=== PATIENT | male | born 1950 | race Caucasian/White ===

== ENCOUNTER → 2016-08-02 | Outpatient (CLI) | payer OTHER ==
[~2016-08-02] MED LIST: ACET-1138 PO; ALBI1INJ2 SQ; ALL300 PO; ALLO100T PO; AMOX875T PO; ASPEC325 PO; ATOR-26 PO; ATV5 PO; GABA-112 PO; GLC/500 PO; GLIM4TAB2 PO; HYDR25TA4 PO; IBUP-1050 PO; INSDGIPEN SC; LISI-725 PO; LORA-741 PO; NVLGI/PEN SQ; NVLGIPEN SQ; NYST100010 TOP; NYST100098 TOP; TRIA0.1O12 TOP; TRMCR130WC TOP; ULT50X PO; [UNRECOGNIZED DRUG - CODE] PO
[2016-08-02 13:56] LABS: HEMATOCRIT 44.2 % (42-52); MEAN CORPUSCULAR HEMOGLOBIN 30.1 pg (25-34); MEAN CORPUSCULAR HGB CONC 34.2 g/dl (32-36); MEAN PLATELET VOLUME 11.8 fL (7.4-10.4); PLATELET COUNT 200 K/uL (130-400); RED BLOOD COUNT 5.02 M/uL (4.7-6.1); WHITE BLOOD COUNT 10.13 K/uL (4.8-10.8)
[2016-08-02 14:03] LABS: ALT/SGPT 53 U/L (12-78); BLOOD UREA NITROGEN 28 mg/dl (7-18); BUN/CREATININE RATIO 23.1 (10-20); CALCIUM 9.2 mg/dl (8.5-10.1); CARBON DIOXIDE 26 mmol/L (21-32); CHLORIDE 96 mmol/L (98-107); CHOLESTEROL 175 mg/dl (0-200); GLUCOSE 327 mg/dl (70-99); POTASSIUM 3.9 mmol/L (3.5-5.1); SODIUM 134 mmol/L (136-145)
[2016-08-02 14:09] LABS: ALB/GLOB RATIO 0.9 (0.9-2); ALKALINE PHOSPHATASE 92 U/L (45-117); AST/SGOT 45 U/L (15-37); CHOLESTEROL/HDL RATIO 4.1; HDL CHOLESTEROL 43 mg/dl; LDL CHOLESTEROL CALCULATED 97 mg/dl; TRIGLYCERIDES 176 mg/dl (0-150); VERY LOW DENSITY LIPOPROT CALC 35 mg/dl
[2016-08-02 14:16] LABS: BETA-HYDROXYBUTYRATE 2.05 mg/dL (0.2-2.81)
[2016-08-02 14:28] LABS: ESTIMATED AVERAGE GLUCOSE 258 mg/dl; HA1C FLAG Normal (Normal)
== END | disposition home or self-care (01) ==
LOC: C.LABBC 09:28
PROVIDERS: ATTEND Internal Medicine
DX: E11.65 Type 2 diabetes mellitus with hyperglycemia (principal); Z12.5 Encounter for screening for malignant neoplasm of prostate; Z11.59 Encounter for screening for other viral diseases

== ENCOUNTER → 2016-09-22 | Outpatient (CLI) | payer OTHER ==
[~2016-09-22] MED LIST changes: +PHEN1ELX5 PO; -[UNRECOGNIZED DRUG - CODE] PO
--- NOTE | 2016-09-22 11:16 | DIAGNOSTIC IMAGING REPORT ---
CHEST 2 VIEWS ROUTINE CLINICAL HISTORY: Cough. COMPARISON STUDY: Chest radiograph January 11, 2016. FINDINGS: Lumbar spine fusion hardware is partially imaged. Lung volumes are at the lower limits of normal. There is no consolidation to suggest pneumonia and there is no evidence of pulmonary edema. A linear radiodensity projecting over the right aspect of the mediastinum is of doubtful significance. Cardiomediastinal silhouette is stable. IMPRESSION: No acute cardiopulmonary findings. Electronically signed by: Trung Plunkett M.D. 09/22/2016 11:15 AM Dictated Date/Time: 09/22/2016 11:11 AM
== END | disposition home or self-care (01) ==
LOC: C.RAD1850 10:47
PROVIDERS: ATTEND Internal Medicine
DX: R05 Cough (principal)

== ENCOUNTER → 2016-12-06 | Outpatient (CLI) | payer OTHER ==
[~2016-12-06] MED LIST changes: -PHEN1ELX5 PO; +[UNRECOGNIZED DRUG - CODE] PO
[2016-12-06 13:19] LABS: BASO % 0.5 %; BASO ABS # 0.04 K/uL (0-0.2); COMPLETE YES; EOS % 2.5 %; HEMATOCRIT 44.8 % (42-52); IG% 0.3 %; LYMPH % 36.2 %; LYMPH ABS # 2.78 K/uL (1.2-3.4); MEAN CELL VOLUME 86.5 fL (80-100); MEAN CORPUSCULAR HEMOGLOBIN 29.9 pg (25-34); MEAN CORPUSCULAR HGB CONC 34.6 g/dl (32-36); MONO % 6.4 %; NEUT % 54.1 %; PLATELET COUNT 168 K/uL (130-400); RED BLOOD COUNT 5.18 M/uL (4.7-6.1); WHITE BLOOD COUNT 7.69 K/uL (4.8-10.8)
[2016-12-06 14:15] LABS: ALB/GLOB RATIO 0.9 (0.9-2); ALKALINE PHOSPHATASE 84 U/L (45-117); ALT/SGPT 64 U/L (12-78); AST/SGOT 40 U/L (15-37); BLOOD UREA NITROGEN 22 mg/dl (7-18); BUN/CREATININE RATIO 16.5 (10-20); CARBON DIOXIDE 24 mmol/L (21-32); CHLORIDE 98 mmol/L (98-107); CHOLESTEROL 165 mg/dl (0-200); CHOLESTEROL/HDL RATIO 3.8; GLUCOSE 358 mg/dl (70-99); HDL CHOLESTEROL 43 mg/dl; LDL CHOLESTEROL CALCULATED 89 mg/dl; POTASSIUM 3.9 mmol/L (3.5-5.1); SODIUM 132 mmol/L (136-145); THYROID STIMULATING HORMONE 0.811 uIu/ml (0.300-4.500); TRIGLYCERIDES 166 mg/dl (0-150); VERY LOW DENSITY LIPOPROT CALC 33 mg/dl
[2016-12-06 14:19] LABS: ESTIMATED AVERAGE GLUCOSE 346 mg/dl; HA1C FLAG Normal (Normal)
[2016-12-06 14:46] LABS: BETA-HYDROXYBUTYRATE 2.39 mg/dL (0.2-2.81)
== END | disposition home or self-care (01) ==
LOC: C.LABBC 10:59
PROVIDERS: ATTEND Internal Medicine
DX: E11.65 Type 2 diabetes mellitus with hyperglycemia (principal)

== ENCOUNTER 2016-12-29 21:27 | Emergency (ER) | payer OTHER ==
[~2016-12-29] VITALS: Ht 162.6 cm; Wt 128.4 kg
[~2016-12-29 21:27] MED LIST changes: -ALBI1INJ2 SQ; -ALLO100T PO; -AMOX875T PO; -ATOR-26 PO; -GABA-112 PO; -GLC/500 PO; -HYDR25TA4 PO; -IBUP-1050 PO; -INSDGIPEN SC; -LISI-725 PO; -LORA-741 PO; -NVLGI/PEN SQ; -NVLGIPEN SQ; -NYST100010 TOP; -TRMCR130WC TOP; -[UNRECOGNIZED DRUG - CODE] PO
[2016-12-29 21:35] VITALS: TEMP 36.4; Ht 162.6 cm; Wt 128.4 kg
[2016-12-29] MEDS ORDERED: RABIES IMMUNE GLOBULIN (HUMAN) 150 INTER.UNIT/ML 2 ML VIAL IM. ONE (22:15)
[2016-12-29] MEDS ORDERED: AMOXICIL/CLAVU 875MG HOME PACK PO ONE (22:15)
[2016-12-29] MEDS ORDERED: RABIES VACCINE (IMOVAX) HUMAN DIPL CELL 2.5 INTER.UNIT/ML SYR IM. ONE (22:15)
[2016-12-29 22:54] VITALS: BP 146/80; PULSE 81; O2SAT 96
[2016-12-29] MEDS ORDERED: AMOX875T PO (23:06)
--- NOTE | 2016-12-29 23:08 | EMERGENCY ROOM VISIT NOTE ---
History First contact with patient: 21:46 Chief Complaint: BITE Stated Complaint: CAT BITE History of Present Illness The patient is a 66 year old male who presents to the Emergency Room with complaints of cat bites to his right lower leg and right forearm. The patient states that he was bit by a barn cat which has lived at his arm for the past 7 years. He states that the cat is usually very friendly and has never been aggressive in the past. The cat has not received any vaccinations. He states that this morning, he tried to pet the cat and it attacked his right leg. He states that later in the day, the cat attacked his grandson and then again attacked the patient, biting his right forearm and right leg. While the patient was chasing after the cat, he feels that he pulled his left groin muscle. The patient states his tetanus status is up-to-date. He rates his overall discomfort a 7/10. He is concerned that the cat could have rabies, as the behavior today was very unusual for the cat. He states that 3-4 weeks ago, the cat suffered an injury to one of his legs and has been limping around since then. They did shoot a cat and have the body at home. Review of Systems A complete 10 point review of systems was reviewed with the patient with pertinent positives and negatives as per history of present illness. All else were negative. Past Medical/Surgical History Medical Problems: (1) Right Knee DJD Social History Smoking Status: Never Smoker Current/Historical Medications Scheduled Allopurinol (Zyloprim *), 300 MG PO QAM Amoxicillin & Pot Clavulanate (Augmentin 875-125 mg), 1 TAB PO BID Atorvastatin (Lipitor), 80 MG PO QPM Belladonna Alkaloids-Phenobarb (), 162 MG PO BID Gabapentin (Neurontin), 200 MG PO TID Hydrochlorothiazide (Hctz), 25 MG PO QAM Insulin Aspart (Novolog Flexpen), 5 UNITS SQ NOON Insulin Aspart (Novolog Flexpen), 12 UNITS SQ QPM Insulin Glargine (Lantus Solostar), 36 UNITS SC HS Lisinopril (Zestril), 20 MG PO QAM Lorazepam (Ativan *), 0.5 MG PO BID Metformin Hcl (Glucophage), 1,000 MG PO BID Nystatin (Mycostatin), 1 APPLN TOP PRN Triamcinolone Acet (Kenelog 0.1% ), 1 APPLN TOP PRN Scheduled PRN Ibuprofen (Advil), 600 MG PO TID PRN for Pain Physical Exam Vital Signs Date Time Temp Pulse Resp B/P (MAP) Pulse Ox O2 Delivery O2 Flow Rate FiO2 12/29/16 22:54 81 18 146/80 96 Room Air 12/29/16 21:35 36.4 86 18 143/70 95 Room Air Physical Exam VITALS: Vitals are noted on the nurse's note and reviewed by myself. Vital signs stable. GENERAL: This is a 66-year-old male, in no acute distress, nondiaphoretic, well- developed well-nourished. SKIN: There are multiple superficial puncture wounds to the right lower leg and one puncture wound to the right forearm. No active bleeding. HEART: Regular rate and rhythm without murmurs gallops or rubs. LUNGS: Clear to auscultation bilaterally without wheezes, rales or rhonchi. MUSCULOSKELETAL: Full range of motion throughout, strength 5/5 throughout. NEURO: Patient was alert and oriented to person place and time. Medical Decision & Procedures Medications Administered Medications (Trade) Dose Ordered Sig/Katina Route Start Time Stop Time Status Last Admin Dose Admin Rabies Vaccine Human Diploid Cell (Imovax Rabies) 2.5 interunit ONCE ONCE IM. 12/29/16 22:15 12/29/16 22:16 DC 12/29/16 22:45 2.5 INTERUNIT Rabies Immune Globulin (Imogam Rabies Inj) 2,560 interunit ONCE ONCE IM. 12/29/16 22:15 12/29/16 22:16 DC 12/29/16 22:45 2,560 INTERUNIT Amoxicillin/ Clavulanate Potassium (Augmentin 875MG Home Pack) 1 homepack UD ONCE PO 12/29/16 22:15 12/29/16 22:16 DC 12/29/16 22:45 1 HOMEPACK Medical Decision The patient was evaluated as above. His tetanus is up-to-date. He will be placed on Augmentin for 5 days to prevent infection. I had a lengthy discussion with the patient regarding the rabies vaccination series. I am concerned because the patient states that this kind of behavior was very unusual for the cat, and the cat has never bit him in the past 7 years. I am concerned that the cat could have been exposed to rabies and it did recommend that the patient received the vaccination series. He was agreeable to this and was given immunoglobulin 20 mg/kg and Imovax 2.5 units intramuscularly. He was instructed on which days to return for the remaining series. He verbalized understanding of my assessment and treatment plan and was discharged home in good condition. Medication Reconcilliation Current Medication List: was personally reviewed by me Blood Pressure Screening Patient's blood pressure: Elevated blood pressure Blood pressure disposition: Elevated BP felt to be situational Impression Primary Impression: Cat bite Departure Information Dispostion Home / Self-Care Condition GOOD Prescriptions Amoxicillin & Pot Clavulanate (Augmentin 875-125 mg) 1 Tab Tab 1 TAB PO BID for 4 Days, #8 TAB Prov: Myranda Lucia ., IFEOMA 12/29/16 Referrals Uzair Bear M.D. (PCP) Patient Instructions My [facility] Additional Instructions You were prescribed Augmentin to be taken twice daily for a total of 5 days. This is an antibiotic. All antibiotics have the potential to cause diarrhea. Stop this medication and contact a medical provider if you were to develop any significant adverse side effects including: wheezing, shortness of breath, passing out, vomiting, or a diffuse rash. Always take antibiotics as directed and COMPLETE the ENTIRE course regardless of the improvement of your symptoms. For pain control, you can use the following [id number] medicines (if >12 yo): - Regular strength (325mg/tab) Tylenol (acetaminophen) 2 tabs every 4-6 hours as needed. Do not exceed 12 tablets in a 24 hour period. Avoid taking more than 4 grams (4000 mg) of Tylenol per day. This includes any other sources of acetaminophen you may take on a regular basis. - Regular strength (200 mg/tab) Advil (ibuprofen) 1-2 tabs every 4-6 hours as needed. Do not exceed a dose of 3200 mg per day. Proper wound care is essential for adequate wound healing and infection prevention. You can shower and clean the wound with soap and water. Do not scour over the wound, pat dry with a towel. Do not submerse the wound (i.e. bathe or dish wash) until the wound has fully healed. You can use an antibiotic ointment with a dressing over the wound for the next 3-4 days. After this time you may leave the wound dry and open to the air. You will need to return for the remainder of your rabies vaccination series. Today is day 0. You will need to return on days 3, 7 and 14. Dates to return: 01/01/17 01/05/17 01/12/17 Problem Qualifiers Primary Impression: Cat bite Encounter type: initial encounter Qualified Codes: W55.01XA - Bitten by cat , initial encounter
[2017-01-12] MEDS ORDERED: GABA-112 PO (08:19)
[2017-01-12] MEDS ORDERED: IBUP-1050 PO (08:19)
[2017-01-12] MEDS ORDERED: ATOR-26 PO (08:19)
[2017-01-12] MEDS ORDERED: [UNRECOGNIZED DRUG - CODE] PO (08:19)
[2017-01-12] MEDS ORDERED: GLC/500 PO (08:19)
[2017-01-12] MEDS ORDERED: HYDR25TA4 PO (08:19)
[2017-01-12] MEDS ORDERED: LISI-725 PO (14:52)
== END 2016-12-29 23:15 | disposition home or self-care (01) ==
LOC: C.EDB 21:28 → C.EDD 23:15
DX: S81.851A Open bite, right lower leg, initial encounter (principal); W55.01XA Bitten by cat, initial encounter; Z23 Encounter for immunization; Z20.3 Contact with and (suspected) exposure to rabies; Z79.4 Long term (current) use of insulin; Z79.84 Long term (current) use of oral hypoglycemic drugs; Z79.899 Other long term (current) drug therapy

== ENCOUNTER 2017-01-01 09:10 | Emergency (ER) | payer OTHER ==
[~2017-01-01] VITALS: Ht 182.9 cm; Wt 130.0 kg
[~2017-01-01 09:10] MED LIST changes: -ACET-1138 PO; +AMOX875T PO; -ASPEC325 PO; -GLIM4TAB2 PO; -ULT50X PO
[2017-01-01 09:15] VITALS: BP 131/73; PULSE 70; TEMP 36.5; O2SAT 96; Ht 182.9 cm; Wt 130.0 kg
[2017-01-01] MEDS ORDERED: RABIES VACCINE (IMOVAX) HUMAN DIPL CELL 2.5 INTER.UNIT/ML SYR IM. ONE (09:45)
--- NOTE | 2017-01-01 10:08 | EMERGENCY ROOM VISIT NOTE ---
ED Visit Note First contact with patient: 09:24 CHIEF COMPLAINT: Need second rabies vaccine HISTORY OF PRESENT ILLNESS: This 66-year-old male presents the ER for his second rabies vaccine. The patient was possibly exposed to rabies when he was bit by a barn cat at just recently became aggressive. The patient did not have any problems with his prior vaccines. REVIEW OF SYSTEMS: 6 system review was performed and was negative unless stated otherwise in history of present illness. PMH: The patient is healthy; see chronic problem list. The patient's EMR was reviewed and there are no changes from last visit. SOCIAL HISTORY: Patient denies any tobacco or alcohol use. PHYSICAL EXAM: Vital Signs: Were reviewed Reviewed Nurse's notes. GENERAL: 66- year-old male appears in no acute distress. MENTAL Status: Alert and oriented 3. SKIN: No erythema or evidence of cellulitis or infection. EMERGENCY DEPARTMENT COURSE: The patient was given Imovax. The patient was discharged home in stable condition. DIAGNOSIS: Post exposure rabies prophylaxis DISCHARGE INSTRUCTIONS: Return to ER on day 7 and 14 for the remainder of severe rabies vaccine schedule. Current/Historical Medications Scheduled Allopurinol (Zyloprim *), 300 MG PO QAM Amoxicillin & Pot Clavulanate (Augmentin 875-125 mg), 1 TAB PO BID Atorvastatin (Lipitor), 80 MG PO QPM Belladonna Alkaloids-Phenobarb (), 162 MG PO BID Gabapentin (Neurontin), 200 MG PO TID Hydrochlorothiazide (Hctz), 25 MG PO QAM Insulin Aspart (Novolog Flexpen), 5 UNITS SQ NOON Insulin Aspart (Novolog Flexpen), 12 UNITS SQ QPM Insulin Glargine (Lantus Solostar), 36 UNITS SC HS Lisinopril (Zestril), 20 MG PO QAM Lorazepam (Ativan *), 0.5 MG PO BID Metformin Hcl (Glucophage), 1,000 MG PO BID Nystatin (Mycostatin), 1 APPLN TOP PRN Triamcinolone Acet (Kenelog 0.1% ), 1 APPLN TOP PRN Scheduled PRN Ibuprofen (Advil), 600 MG PO TID PRN for Pain Allergies Coded Allergies: No Known Allergies (Verified , 01/01/17) Vital Signs Date Time Temp Pulse Resp B/P (MAP) Pulse Ox O2 Delivery O2 Flow Rate FiO2 01/01/17 09:15 36.5 70 20 131/73 96 Room Air Medications Administered Medications (Trade) Dose Ordered Sig/Katina Route Start Time Stop Time Status Last Admin Dose Admin Rabies Vaccine Human Diploid Cell (Imovax Rabies) 2.5 interunit ONCE ONCE IM. 01/01/17 09:45 01/01/17 09:46 DC 01/01/17 09:44 2.5 INTERUNIT Departure Information Impression Primary Impression: Rabies, need for prophylactic vaccination against Dispostion Home / Self-Care Condition GOOD Forms WORK / SCHOOL INSTRUCTIONS, HOME CARE DOCUMENTATION FORM, IMPORTANT VISIT INFORMATION Patient Instructions My [facility] Additional Instructions Return to ER on day 7 and 14 for the remainder of your rabies vaccine series.
[2017-01-12] MEDS ORDERED: ATOR-26 PO (08:19)
[2017-01-12] MEDS ORDERED: HYDR25TA4 PO (08:19)
[2017-01-12] MEDS ORDERED: [UNRECOGNIZED DRUG - CODE] PO (08:19)
[2017-01-12] MEDS ORDERED: GABA-112 PO (08:19)
[2017-01-12] MEDS ORDERED: IBUP-1050 PO (08:19)
[2017-01-12] MEDS ORDERED: GLC/500 PO (08:19)
[2017-01-12] MEDS ORDERED: LISI-725 PO (14:52)
== END 2017-01-01 09:57 | disposition home or self-care (01) ==
LOC: C.EDB 09:12
DX: Z20.3 Contact with and (suspected) exposure to rabies (principal); Z23 Encounter for immunization

== ENCOUNTER 2017-01-05 14:44 | Emergency (ER) | payer OTHER ==
[~2017-01-05] VITALS: Ht 162.6 cm; Wt 128.5 kg
[~2017-01-05 14:44] MED LIST changes: -AMOX875T PO
[2017-01-05 14:46] VITALS: BP 139/86; PULSE 77; TEMP 36.7; O2SAT 96; Ht 162.6 cm; Wt 128.5 kg
[2017-01-05] MEDS ORDERED: RABIES VACCINE (IMOVAX) HUMAN DIPL CELL 2.5 INTER.UNIT/ML SYR IM. ONE (15:15)
--- NOTE | 2017-01-05 15:17 | EMERGENCY ROOM VISIT NOTE ---
ED Visit Note First contact with patient: 15:07 CHIEF COMPLAINT: Rabies prophylaxis HISTORY OF PRESENT ILLNESS: This 66-year-old male patient presents to the emergency department, ambulatory, for their 3rd rabies shot. The patient's initial injury was on December 29, and was a cat bite. The cat was well known to the family, however was an outdoor cat did not have any vaccinations. The cat began acting erratically, and didn't bite the patient. He was started on Augmentin, and his wounds are healing well. The patient has not had any complications from the previous injections. They deny any other complaints. REVIEW OF SYSTEMS: A 6 system review of systems was completed with positives and pertinent negatives listed in the HPI. ALLERGIES: None MEDICATIONS: Please see list. I did personally review the patient's medications with him. PMH: Unchanged from previous visit. PHYSICAL EXAM: Vital Signs: Reviewed Nurse's notes, vital signs stable. GENERAL : This is a 66-year-old male, in no acute distress, well-developed, well- nourished. HEAD: Atraumatic, without temporal or scalp tenderness. EYES: PERRLA, EOMI, no discharge or injection. SKIN: Normal. NEUROLOGICAL: Alert and cooperative. Sensory and motor functions grossly intact. EMERGENCY DEPARTMENT COURSE: I examined the patient. The patient was given 1ml IM. The patient was observed for 20 minutes with no reaction. The patient was discharged home in stable condition. DIAGNOSIS: Rabies prophylaxis DISCHARGE INSTRUCTIONS: Continue vaccination schedule as directed. Return on January 12 for your final vaccination. Return for any complications. Current/Historical Medications Scheduled Albiglutide (Tanzeum), 50 MG SQ WK Allopurinol (Zyloprim), 100 MG PO QAM Atorvastatin (Lipitor), 80 MG PO QPM Belladonna Alkaloids-Phenobarb (), 162 MG PO BID Gabapentin (Neurontin), 200 MG PO TID Hydrochlorothiazide (Hctz), 25 MG PO QAM Insulin Aspart (Novolog Flexpen), 5 UNITS SQ NOON Insulin Aspart (Novolog Flexpen), 12 UNITS SQ QPM Insulin Glargine (Lantus Solostar), 36 UNITS SC HS Lisinopril (Zestril), 20 MG PO QAM Lorazepam (Ativan), 0.5 MG PO BID Metformin Hcl (Glucophage), 1,000 MG PO BID Triamcinolone Acet (Aristocort 0.1%), 1 APPLN TOP PRN Scheduled PRN Ibuprofen (Advil), 600 MG PO TID PRN for Pain Nystatin (Topical) (Nystop), 1 APPLN TOP TID PRN for AFFECTED AREA Allergies Coded Allergies: No Known Allergies (Verified , 01/01/17) Vital Signs Date Time Temp Pulse Resp B/P (MAP) Pulse Ox O2 Delivery O2 Flow Rate FiO2 01/05/17 14:46 36.7 77 16 139/86 96 Room Air Medications Administered Medications (Trade) Dose Ordered Sig/Katina Route Start Time Stop Time Status Last Admin Dose Admin Rabies Vaccine Human Diploid Cell (Imovax Rabies) 2.5 interunit ONCE ONCE IM. 01/05/17 15:15 01/05/17 15:16 DC 01/05/17 15:47 2.5 INTERUNIT Departure Information Impression Primary Impression: Cat bite Additional Impression: Need for prophylactic vaccination against rabies Dispostion Home / Self-Care Condition GOOD Referrals Uzair Bear M.D. (PCP) Patient Instructions My [facility], Rabies Vaccine suspension for injection Additional Instructions Please continue to monitor wounds for increased redness, drainage, or pain. Please return on January 12 for your last rabies vaccination. Please return sooner for any complications or adverse reactions to the vaccination including redness of the injection site, fever, chills, nausea, vomiting, ental status change, or other associated symptoms. Problem Qualifiers Primary Impression: Cat bite Encounter type: subsequent encounter Qualified Codes: W55.01XD - Bitten by cat, subsequent encounter
[2017-01-12] MEDS ORDERED: IBUP-1050 PO (08:19)
[2017-01-12] MEDS ORDERED: GABA-112 PO (08:19)
[2017-01-12] MEDS ORDERED: [UNRECOGNIZED DRUG - CODE] PO (08:19)
[2017-01-12] MEDS ORDERED: ATOR-26 PO (08:19)
[2017-01-12] MEDS ORDERED: GLC/500 PO (08:19)
[2017-01-12] MEDS ORDERED: HYDR25TA4 PO (08:19)
[2017-01-12] MEDS ORDERED: LISI-725 PO (14:52)
== END 2017-01-05 16:05 | disposition home or self-care (01) ==
LOC: C.EDB 14:45 → C.EDD 16:05
DX: Z23 Encounter for immunization (principal); Z20.3 Contact with and (suspected) exposure to rabies; W55.01XA Bitten by cat, initial encounter

== ENCOUNTER 2017-01-12 14:58 | Emergency (ER) | payer OTHER ==
[~2017-01-12] VITALS: Ht 162.6 cm; Wt 128.5 kg
[~2017-01-12 14:58] MED LIST changes: -ALL300 PO; +ATOR-26 PO; -ATV5 PO; +GABA-112 PO; +GLC/500 PO; +HYDR25TA4 PO; +IBUP-1050 PO; +LISI-725 PO; -NYST100098 TOP; -TRIA0.1O12 TOP; +[UNRECOGNIZED DRUG - CODE] PO
[2017-01-12 15:06] VITALS: TEMP 36.7; Ht 162.6 cm; Wt 128.5 kg
[2017-01-12] MEDS ORDERED: LORA-741 PO (15:12)
[2017-01-12] MEDS ORDERED: TRMCR130WC TOP (15:12)
[2017-01-12] MEDS ORDERED: NYST100010 TOP (15:12)
[2017-01-12] MEDS ORDERED: ALLO100T PO (15:12)
[2017-01-12] MEDS ORDERED: ALBI1INJ2 SQ (15:17)
[2017-01-12] MEDS ORDERED: RABIES VACCINE (IMOVAX) HUMAN DIPL CELL 2.5 INTER.UNIT/ML SYR IM. ONE (15:30)
--- NOTE | 2017-01-12 15:43 | EMERGENCY ROOM VISIT NOTE ---
ED Visit Note First contact with patient: 15:13 CHIEF COMPLAINT: Rabies prophylaxis HISTORY OF PRESENT ILLNESS: This 66-year-old male patient presents to the emergency department, ambulatory, for their fourth and final rabies shot. The patient's initial injury was from a cat bite on December 29. The cat was well- known to the family, but unvaccinated and began acting erratically. The patient has not had any complications from the previous injections. They deny any other complaints. REVIEW OF SYSTEMS: A 6 system review of systems was completed with positives and pertinent negatives listed in the HPI. ALLERGIES: None MEDICATIONS:. See list. I did personally review the patient's medication list at bedside. PMH: Unchanged from previous visit. SOCIAL HISTORY: The patient lives locally with family. He denies alcohol, tobacco use. PHYSICAL EXAM: Vital Signs: Reviewed Nurse's notes, vital signs stable. GENERAL : This is a 66-year-old male, in no acute distress, well-developed, well- nourished. HEAD: Atraumatic, without temporal or scalp tenderness. EYES: PERRLA, EOMI, no discharge or injection. SKIN: Normal. NEUROLOGICAL: Alert and cooperative. Sensory and motor functions grossly intact. EMERGENCY DEPARTMENT COURSE: I examined the patient. The patient was given Imovax 1ml IM. The patient was observed for 20 minutes with no reaction. The patient was discharged home in stable condition. The patient's blood pressure in the ED was slightly elevated, but he is under the care of a physician for this problem. I do feel that the bp may be elevated due to situational stress and waiting in the waiting room. DIAGNOSIS: Rabies prophylaxis DISCHARGE INSTRUCTIONS: This was sore final vaccination. Return for any complications. Current/Historical Medications Scheduled Albiglutide (Tanzeum), 50 MG SQ WK Allopurinol (Zyloprim), 100 MG PO QAM Atorvastatin (Lipitor), 80 MG PO QPM Belladonna Alkaloids-Phenobarb (), 162 MG PO BID Gabapentin (Neurontin), 200 MG PO TID Hydrochlorothiazide (Hctz), 25 MG PO QAM Insulin Aspart (Novolog Flexpen), 5 UNITS SQ NOON Insulin Aspart (Novolog Flexpen), 12 UNITS SQ QPM Insulin Glargine (Lantus Solostar), 36 UNITS SC HS Lisinopril (Zestril), 20 MG PO QAM Lorazepam (Ativan), 0.5 MG PO BID Metformin Hcl (Glucophage), 1,000 MG PO BID Triamcinolone Acet (Aristocort 0.1%), 1 APPLN TOP PRN Scheduled PRN Ibuprofen (Advil), 600 MG PO TID PRN for Pain Nystatin (Topical) (Nystop), 1 APPLN TOP TID PRN for AFFECTED AREA Allergies Coded Allergies: No Known Allergies (Verified , 01/01/17) Vital Signs Date Time Temp Pulse Resp B/P (MAP) Pulse Ox O2 Delivery O2 Flow Rate FiO2 01/12/17 15:06 36.7 74 20 151/83 96 Room Air Departure Information Impression Primary Impression: Cat bite Additional Impression: Rabies, need for prophylactic vaccination against Dispostion Home / Self-Care Condition GOOD Referrals No Doctor, Assigned (PCP) Patient Instructions My [facility], Rabies Vaccine suspension for injection Additional Instructions This was your final vaccination. Return for any complications or ongoing concerns. Problem Qualifiers Primary Impression: Cat bite Encounter type: sequela Qualified Codes: W55.01XS - Bitten by cat, sequela
[2017-01-12 15:59] VITALS: BP 151/76; PULSE 76; O2SAT 96
[2017-01-12] MEDS ORDERED: NVLGI/PEN SQ (21:43)
[2017-01-12] MEDS ORDERED: INSDGIPEN SC (21:43)
[2017-01-12] MEDS ORDERED: NVLGIPEN SQ (21:43)
== END 2017-01-12 15:59 | disposition home or self-care (01) ==
LOC: C.EDB 14:59 → C.EDD 15:59
DX: Z23 Encounter for immunization (principal); Z20.3 Contact with and (suspected) exposure to rabies; W55.01XS Bitten by cat, sequela

== ENCOUNTER → 2017-04-12 | Outpatient (CLI) | payer OTHER ==
[~2017-04-12] MED LIST changes: +ALBI1INJ2 SQ; +ALLO100T PO; +INSDGIPEN SC; +LORA-741 PO; +NVLGI/PEN SQ; +NVLGIPEN SQ; +NYST100010 TOP; +PHEN1ELX5 PO; +TRMCR130WC TOP; -[UNRECOGNIZED DRUG - CODE] PO
[2017-04-12 10:47] LABS: HEMATOCRIT 42.8 % (42-52); MEAN CELL VOLUME 88.6 fL (80-100); MEAN CORPUSCULAR HEMOGLOBIN 31.5 pg (25-34); MEAN CORPUSCULAR HGB CONC 35.5 g/dl (32-36); MEAN PLATELET VOLUME 10.9 fL (7.4-10.4); PLATELET COUNT 228 K/uL (130-400); RED BLOOD COUNT 4.83 M/uL (4.7-6.1); WHITE BLOOD COUNT 9.65 K/uL (4.8-10.8)
[2017-04-12 11:11] LABS: ALT/SGPT 37 U/L (12-78); AST/SGOT 20 U/L (15-37); BLOOD UREA NITROGEN 21 mg/dl (7-18); BUN/CREATININE RATIO 19.3 (10-20); CALCIUM 8.8 mg/dl (8.5-10.1); CARBON DIOXIDE 26 mmol/L (21-32); CHLORIDE 103 mmol/L (98-107); CREATININE 1.07 mg/dl (0.60-1.40); GLUCOSE 107 mg/dl (70-99); POTASSIUM 3.7 mmol/L (3.5-5.1); SODIUM 137 mmol/L (136-145)
[2017-04-12 11:17] LABS: ESTIMATED AVERAGE GLUCOSE 137 mg/dl; HA1C FLAG Normal (Normal)
[2017-04-12 11:21] LABS: ALB/GLOB RATIO 0.9 (0.9-2); ALKALINE PHOSPHATASE 77 U/L (45-117); CHOLESTEROL 156 mg/dl (0-200); CHOLESTEROL/HDL RATIO 3.1; HDL CHOLESTEROL 51 mg/dl; LDL CHOLESTEROL CALCULATED 84 mg/dl; TRIGLYCERIDES 105 mg/dl (0-150); VERY LOW DENSITY LIPOPROT CALC 21 mg/dl
== END | disposition home or self-care (01) ==
LOC: C.LABBC 08:04
PROVIDERS: ATTEND Physician Assistant
DX: E11.9 Type 2 diabetes mellitus without complications (principal); E78.5 Hyperlipidemia, unspecified

== ENCOUNTER → 2017-09-15 | Outpatient (CLI) | payer OTHER ==
[2017-09-15 13:22] LABS: ALBUMIN 3.6 gm/dl (3.4-5.0); ALT/SGPT 458 U/L (12-78); AST/SGOT 409 U/L (15-37); BLOOD UREA NITROGEN 23 mg/dl (7-18); CALCIUM 9.6 mg/dl (8.5-10.1); CARBON DIOXIDE 28 mmol/L (21-32); GLUCOSE 137 mg/dl (70-99); SODIUM 135 mmol/L (136-145)
[2017-09-15 13:27] LABS: ALKALINE PHOSPHATASE 221 U/L (45-117); CHOLESTEROL 149 mg/dl (0-200); LDL CHOLESTEROL CALCULATED 81 mg/dl; TOTAL PROTEIN 7.6 gm/dl (6.4-8.2)
== END | disposition home or self-care (01) ==
LOC: C.LABBC 09:26
PROVIDERS: ATTEND Internal Medicine
DX: E78.5 Hyperlipidemia, unspecified (principal); E11.9 Type 2 diabetes mellitus without complications; Z12.5 Encounter for screening for malignant neoplasm of prostate

== ENCOUNTER → 2017-09-18 | Outpatient (CLI) | payer OTHER ==
[2017-09-18 17:32] LABS: ALBUMIN 3.7 gm/dl (3.4-5.0); TOTAL PROTEIN 7.9 gm/dl (6.4-8.2)
== END | disposition home or self-care (01) ==
LOC: C.LABBFT 11:01
PROVIDERS: ATTEND Internal Medicine
DX: E11.9 Type 2 diabetes mellitus without complications (principal); R74.8 Abnormal levels of other serum enzymes

== ENCOUNTER → 2017-09-21 | Outpatient (CLI) | payer OTHER ==
--- NOTE | 2017-09-21 08:53 | DIAGNOSTIC IMAGING REPORT ---
BILIARY ULTRASOUND CLINICAL HISTORY: R74.8 Abnormal liver enzymes COMPARISON STUDY: No previous studies for comparison. FINDINGS: The pancreas was poorly visualized. The liver was of increased echogenicity, a finding most likely secondary to hepatic steatosis. There are no focal hepatic masses. There is no right-sided hydronephrosis. The common bile duct measures 6 mm. In addition the multiple gallbladder calculi, multiple tiny gallbladder polyps are suspected. IMPRESSION: 1. Hepatic steatosis 2. Tiny gallbladder calculi, and multiple tiny gallbladder polyps 3. No evidence of ductal dilatation 3. Nondiagnostic evaluation the pancreas Electronically signed by: Gene Grace M.D. 09/21/2017 8:50 AM Dictated Date/Time: 09/21/2017 8:48 AM
== END | disposition home or self-care (01) ==
LOC: C.ULTR 08:06
PROVIDERS: ATTEND Internal Medicine
DX: R74.8 Abnormal levels of other serum enzymes (principal)

== ENCOUNTER → 2017-09-26 | Outpatient (CLI) | payer OTHER ==
[2017-09-26 11:44] LABS: ALBUMIN 3.6 gm/dl (3.4-5.0); TOTAL PROTEIN 7.7 gm/dl (6.4-8.2)
== END | disposition home or self-care (01) ==
LOC: C.LABBC 09:05
PROVIDERS: ATTEND Internal Medicine
DX: R74.8 Abnormal levels of other serum enzymes (principal)

== ENCOUNTER → 2017-10-11 | Day surgery (SDC) | payer OTHER ==
[2017-10-02 09:35] LABS: BASO % 0.9 %; BASO ABS # 0.07 K/uL (0-0.2); EOS % 2.6 %; HEMATOCRIT 43.8 % (42-52); HEMOGLOBIN 15.8 g/dL (14.0-18.0); IG# 0.03 K/uL (0.00-0.02); LYMPH % 36.4 %; MEAN CELL VOLUME 88.1 fL (80-100); MEAN CORPUSCULAR HEMOGLOBIN 31.8 pg (25-34); MEAN CORPUSCULAR HGB CONC 36.1 g/dl (32-36); MEAN PLATELET VOLUME 11.1 fL (7.4-10.4); MONO % 7.8 %; NEUT % 51.9 %; NEUT ABS # 3.99 K/uL (1.4-6.5); PLATELET COUNT 231 K/uL (130-400); RED CELL DISTRIBUTION WIDTH CV 13.9 % (11.5-14.5); RED CELL DISTRIBUTION WIDTH SD 44.6 fL (36.4-46.3); WHITE BLOOD COUNT 7.69 K/uL (4.8-10.8)
[2017-10-03 07:41] VITALS: BMI 48.0
[~2017-10-11] VITALS: Ht 162.6 cm; Wt 126.8 kg
[~2017-10-11] MED LIST changes: +ACETAMINOPHEN 1000 MG/100 ML IV IV ONE; -ALLO100T PO; +ALLO300T2 PO; +ASPI81TA28 PO; +ATROPINE SULFATE 0.1 MG/ML 5ML SYR IV PRN; +BUPIVACAINE 0.5 % 5 MG/1 ML MPF 30ML VIAL ONE; +CEFOXITIN IV 2,000 MG in DEXTROSE 5% 50ML 50 ML IV SCH; +DEXAMETHASONE SOD INJ 4 MG/ML VIAL ONE; +DULA0.5I SQ; +EpHEDrine SULFATE INJ 50 MG/ML AMP IV PRN; +FENTANYL CITRATE INJ 50 MCG/1 ML 2 ML VIAL IV PRN; +FENTANYL CITRATE INJ 50 MCG/1 ML 2 ML VIAL ONE; +GLYCOPYRROLATE INJ 0.2 MG/ML VIAL ONE; +HYDROmorphone INJ 0.5 MG/0.5 ML SYR IV PRN; +IOPAMIDOL INJ 61% 15 ML VIAL IV ONE; +KETOROLAC TROMETHAMINE 30 MG/ML VIAL ONE; +LIDOCAINE HCL 2% 2 ML VIAL (20MG/ML) ONE; +MIDAZOLAM HCL 1 MG/ML 2ML VIAL ONE; +MULT-506 PO; +NEOSTIGMINE METHYLSULFATE 5 MG/5 ML SYR ONE; +ONDANSETRON INJ 2 MG/ML 2 ML VIAL IV PRN; +ONDANSETRON INJ 2 MG/ML 2 ML VIAL ONE; +OXYC-57 PO; +OXYCODONE/ACETAMINOPHEN 5-325 TAB PO PRN; +PROPOFOL IV EMULSION 10 MG/ML 20 ML VIAL ONE; +SODIUM CHLORIDE 0.9% 1000ML 1,000 ML IV SCH; +TRAM-453 PO
[2017-10-11 05:35] VITALS: BP 149/90; PULSE 68; TEMP 36.9; O2SAT 95; Ht 162.6 cm; Wt 126.8 kg
[2017-10-11] MEDS: LACTATED RINGER'S 1000ML 1,000 ML IV SCH ×2 (05:54→09:35)
--- NOTE | 2017-10-11 07:05 | History & Physical Bridge Note ---
H&P Re-Evaluation Bridge Note: I have examined the patient, reviewed the History & Physical and in the interval since the performance of the History & Physical I have noted the following changes of clinical significance: No changes noted
--- NOTE | 2017-10-11 08:49 | [facility] Post Operative Brief Note ---
Immediate Operative Summary Operative Date October 11, 2017. Pre-Operative Diagnosis Cholelithiasis Post-Operative Diagnosis Cholelithiasis Procedure(s) Performed Laparoscopic Cholecystectomy with Cholangiogram Surgeon Dr. Meneses Television Director Surgeon(s) Chelo Ba PA-C Estimated Blood Loss 4mL Findings Consistent with Post-Op Diagnosis Window of safety obtained, negative cholangiogram Specimens For Permanent: A:Gallbladder & Contents B: Node of Calot Drains None Anesthesia Type General Complication(s) none Disposition Accompanied Pt To Recover: no Disposition: Recovery Room / PACU
--- NOTE | 2017-10-11 08:52 | DIAGNOSTIC IMAGING REPORT ---
CHOLANGIOGRAM O.R. CLINICAL HISTORY: LAP JAZLYN COMPARISON STUDY: None FLUOROSCOPY TIME: 77 seconds. NUMBER OF FLUOROSCOPIC IMAGES: 1 FINDINGS: A single intraoperative fluoroscopic spot images provided for interpretation. Contrast opacifies the common bile duct and common hepatic duct. There are no filling defects identified. There is free flow into the duodenum. IMPRESSION: No retained calculi are visualized. Electronically signed by: Gene Grace M.D. 10/11/2017 8:51 AM Dictated Date/Time: 10/11/2017 8:50 AM
--- NOTE | 2017-10-11 08:56 | [facility] Operative Report ---
Operative Report Operative Date October 11, 2017. Pre-Operative Diagnosis Cholelithiasis Post-Operative Diagnosis Same Procedure(s) Performed Laparoscopic cholecystectomy with intraoperative cholangiogram Surgeon Dr. Meneses Pewter Finisher Surgeon(s) Chelo Ba PA-C Estimated Blood Loss 4mL Findings Window of safety obtained, cholangiogram with no filling defects. Specimens For Permanent: A:Gallbladder & Contents B: Node of Calot Drains None Anesthesia GETA Complication(s) None Disposition Recovery Room / PACU Indications 66-year-old male with symptomatic cholelithiasis and possible choledocholithiasis in the past, plan for laparoscopic cholecystectomy with possible cholangiogram. The risks of the procedure were discussed, all questions were answered, and the patient agreed to proceed with surgery as planned. Description of Procedure The patient was properly identified, consented, and taken to the operating room where he was placed in the supine position. General endotracheal anesthesia was induced. SCDs and a safety belt were placed. Preoperative antibiotics were administered. The patient's abdomen was prepped and draped in the standard sterile fashion. A surgical timeout was performed and all parties were in agreement that this was the correct patient and procedure to be performed and we continued as planned. An incision was made superior and to the left of the umbilicus overlying the rectus muscle and the Veress needle was inserted. Saline drop test confirmed entry into the peritoneum. The abdomen was insufflated with carbon dioxide which the patient tolerated without incident. The abdomen was then entered using the Optiview technique and a 5 mm trocar. The laparoscope was inserted and no damage from initial trocar or Veress needle placement was noted, no gross abnormalities were noted within the 4 quadrants of the abdomen. An 11 mm port was placed in the subxiphoid position and two 5 mm ports were then placed in the right subcostal position. The patient was placed in reverse Trendelenburg position and rotated towards the left. The dome of the gallbladder was retracted towards the left upper quadrant and the infundibulum was retracted toward the right lower quadrant revealing Calot' s triangle. Peritoneal attachments were taken down with electrocautery and blunt dissection. The cystic duct and artery were circumferentially dissected. The cystic artery and node of collateral came anterior to the cystic duct and went on the lateral side of the gallbladder. A window of safety was obtained showing the cystic duct entering the gallbladder with no aberrant structures noted. The cystic artery was doubly clipped and divided, and additional side branch was clipped. The note of collateral was removed and was sent as specimen. The [facility] cholangiocatheter was then used to perform an intraoperative cholangiogram which showed no filling defects, and good filling of the duodenum and hepatic radicals with contrast. The cystic duct was doubly clipped and divided. The gallbladder was then lifted off the gallbladder fossa with electrocautery. The gallbladder was placed in an Endo Catch bag and removed through the subxiphoid port site. The right upper quadrant was irrigated and hemostasis was found to be good. 5 mm trochars were removed under direct visualization and the abdomen was allowed to collapse. The subxiphoid port site fascia was closed with 0 Vicryl suture. The wound was irrigated, and the skin of all ports was closed with 4-0 Monocryl subcuticular sutures. Dermabond was placed over the wounds. The patient was extubated in the operating room and taken to the PACU where he recovered without apparent incident. All sponge, instrument and needle counts were correct at the conclusion of the procedure. The patient tolerated the procedure well. The physician's yard assistant was present and scrubbed for the entirety of the case. She was critical in positioning the patient, prepping and draping, entry into the abdomen, retraction and exposure, driving the laparoscope, removal of the gallbladder, closure of the incisions, and placement of the dressings. I attest to the content of the Intraoperative Record and any orders documented therein. Any exceptions are noted below.
--- NOTE | 2017-10-11 08:59 | [facility] Operative Report ---
Operative Report Operative Date October 11, 2017. Pre-Operative Diagnosis Cholelithiasis Procedure(s) Performed Laparoscopic cholecystectomy with cholangiogram Surgeon Dr. Meneses Findings Intraoperative fluoroscopy was used and interpreted by the operative surgeon during the case for performance of the cholangiogram. I attest to the content of the Intraoperative Record and any orders documented therein. Any exceptions are noted below.
--- NOTE | 2017-10-11 09:06 | Discharge Instructions ---
Discharge Instructions Date of Service October 11, 2017. Admission Reason for Admission: Cholelithiasis Discharge Discharge Diagnosis / Problem: Cholelithiasis Discharge Goals Goal(s): Decrease discomfort, Improve function Activity Recommendations Activity Limitations: as noted below Lifting Limitations: no more than 10 pounds Exercise/Sports Limitations: until after follow-up appointment May Resume Sexual Activity: after follow-up appointment Shower/Bathe: tomorrow Driving or Machine Use: resume 1 day after discharge . Instructions / Follow-Up Instructions / Follow-Up You have surgical glue, Dermabond, over your incisions. You may shower tomorrow , but please do not soak or scrub your incisions. Please follow-up with Dr. Meneses in the General Surgery Clinic in 1-2 weeks. Please call the office at [phone] to make an appointment if you do not have one already. Please call the General Surgery Clinic with any questions or concerns. Current Hospital Diet Patient's current hospital diet: Discharge Diet Recommended Diet: Regular Diet Procedures Procedures Performed: Laparoscopic Cholecystectomy with Intraoperative Cholangiogram Pending Studies Studies pending at discharge: yes List of pending studies: Pathology report. Laboratory Results Hemoglobin A1c Test 09/15/17 09:35 Range/Units Estimated Average Glucose 126 mg/dl Hemoglobin A1c 6.0 H 4.5-5.6 % Lipid Panel Test 09/15/17 09:35 Range/Units Triglycerides Level 103 0-150 mg/dl Cholesterol Level 149 0-200 mg/dl HDL Cholesterol 47 mg/dl Cholesterol/HDL Ratio 3.2 LDL Cholesterol, Calculated 81 mg/dl Medical Emergencies . Who to Call and When: Medical Emergencies: If at any time you feel your situation is an emergency, please call 911 immediately. . Non-Emergent Contact Non-Emergency issues call your: Primary Care Provider, Surgeon Call Non-Emergent contact if: temperature is above 101.5, your pain is not controlled, wound has increased drainage, wound has increased redness . "Provider Documentation" section prepared by Lauryn Ba. .
--- NOTE | 2017-10-11 09:45 | Anesthesiology Progress Note ---
Anesthesia Post Op Note Date & Time October 11, 2017 at 09:45 Vital Signs Pain Intensity: 0 Vital Signs Past 12 Hours Date Time Temp Pulse Resp B/P (MAP) Pulse Ox O2 Delivery O2 Flow Rate FiO2 10/11/17 09:40 36.2 68 16 142/89 96 Nasal Cannula 2 10/11/17 09:30 69 16 117/59 95 Nasal Cannula 2 10/11/17 09:20 73 16 136/70 91 Oxymask 10 10/11/17 09:10 74 16 149/87 97 Oxymask 10 10/11/17 09:04 36.2 78 16 162/79 98 Oxymask 10 10/11/17 05:35 36.9 68 20 149/90 (109) 95 Room Air Notes Mental Status: alert / awake / arousable, participated in evaluation Pt Amnestic to Procedure: Yes Nausea / Vomiting: adequately controlled Pain: adequately controlled Airway Patency, RR, SpO2: stable & adequate BP & HR: stable & adequate Hydration State: stable & adequate Anesthetic Complications: no major complications apparent
[2017-10-11 09:50] VITALS: BP 112/93; PULSE 72; TEMP 36.5; O2SAT 93
[2017-10-11 10:20] VITALS: BP 138/66; PULSE 69; TEMP 36.6; O2SAT 95
== END | disposition home health service (06) ==
LOC: C.ACU 05:12
PROVIDERS: ATTEND Surgery
DX: K80.10 Calculus of gallbladder with chronic cholecystitis without obstruction (principal); I10 Essential (primary) hypertension; E78.5 Hyperlipidemia, unspecified; E11.9 Type 2 diabetes mellitus without complications; K21.9 Gastro-esophageal reflux disease without esophagitis; E66.01 Morbid (severe) obesity due to excess calories; Z98.890 Other specified postprocedural states; F41.9 Anxiety disorder, unspecified; Z79.82 Long term (current) use of aspirin; Z79.899 Other long term (current) drug therapy; Z79.84 Long term (current) use of oral hypoglycemic drugs; Z68.42 Body mass index [BMI] 45.0-49.9, adult

== ENCOUNTER → 2017-12-25 | Outpatient (CLI) | payer OTHER ==
[~2017-12-25] MED LIST changes: -ACETAMINOPHEN 1000 MG/100 ML IV IV ONE; -ALBI1INJ2 SQ; -ATOR-26 PO; -ATROPINE SULFATE 0.1 MG/ML 5ML SYR IV PRN; -BUPIVACAINE 0.5 % 5 MG/1 ML MPF 30ML VIAL ONE; -CEFOXITIN IV 2,000 MG in DEXTROSE 5% 50ML 50 ML IV SCH; -DEXAMETHASONE SOD INJ 4 MG/ML VIAL ONE; -EpHEDrine SULFATE INJ 50 MG/ML AMP IV PRN; -FENTANYL CITRATE INJ 50 MCG/1 ML 2 ML VIAL IV PRN; -FENTANYL CITRATE INJ 50 MCG/1 ML 2 ML VIAL ONE; -GLYCOPYRROLATE INJ 0.2 MG/ML VIAL ONE; -HYDROmorphone INJ 0.5 MG/0.5 ML SYR IV PRN; -IOPAMIDOL INJ 61% 15 ML VIAL IV ONE; -KETOROLAC TROMETHAMINE 30 MG/ML VIAL ONE; -LIDOCAINE HCL 2% 2 ML VIAL (20MG/ML) ONE; -MIDAZOLAM HCL 1 MG/ML 2ML VIAL ONE; -NEOSTIGMINE METHYLSULFATE 5 MG/5 ML SYR ONE; -ONDANSETRON INJ 2 MG/ML 2 ML VIAL IV PRN; -ONDANSETRON INJ 2 MG/ML 2 ML VIAL ONE; -OXYC-57 PO; -OXYCODONE/ACETAMINOPHEN 5-325 TAB PO PRN; -PROPOFOL IV EMULSION 10 MG/ML 20 ML VIAL ONE; -SODIUM CHLORIDE 0.9% 1000ML 1,000 ML IV SCH; -TRAM-453 PO
[2017-12-25 11:45] LABS: HEMOGLOBIN A1C 7.2 % (4.5-5.6)
[2017-12-25 14:20] LABS: ALBUMIN 3.5 gm/dl (3.4-5.0); TOTAL PROTEIN 7.2 gm/dl (6.4-8.2)
== END | disposition home or self-care (01) ==
LOC: C.LABBC 09:20
PROVIDERS: ATTEND Internal Medicine
DX: R74.8 Abnormal levels of other serum enzymes (principal); E11.9 Type 2 diabetes mellitus without complications

== ENCOUNTER 2018-11-07 06:12 | Inpatient (IN) ==
--- NOTE | 2018-10-17 08:26 | Anesthesiology Consultation ---
Date of Service October 17, 2018 Assessment & Plan (1) Encounter for pre-operative examination: Chart Review Chart Review: Acceptable Risk for Surgery and Patient seen in Pre Admission Testing Consults Requested none Teaching & Discussion Pre-Anesthesia Teaching/Discussion Notes: Instructed NPO after midnight before surgery, except medications with 15 cc of water. Medication instructions provided according to the PAT guidelines. History Surgery Operation Date: 11/07/18 10:55 Proposed Procedures p Right Total Hip Arthroplasty - Delon Connors MD Height/Weight Height: 5 ft 4 in Weight: 135.8 kg Allergies Allergy/AdvReac Type Severity Reaction Status Date / Time No Known Allergies Allergy Verified 10/16/18 08:55 Medications Home Medications Medication Instructions Recorded Confirmed Last Taken Centrum Silver Men 1 tab PO DAILY 06/19/18 10/16/18 Unknown Novolog Flexpen U-100 Insulin 5 unit SUBCUT QDB 06/19/18 10/16/18 Unknown Novolog Flexpen U-100 Insulin 8 unit SUBCUT QDL 06/19/18 10/16/18 Unknown allopurinol 300 mg PO QAM 06/19/18 10/16/18 Unknown aspirin 81 mg PO QAM 06/19/18 10/16/18 Unknown atorvastatin 80 mg PO HS 06/19/18 10/16/18 Unknown diclofenac sodium 2 g TOPICAL QID 06/19/18 10/16/18 Unknown dulaglutide 1.5 mg SUBCUT WK 06/19/18 10/16/18 Unknown gabapentin 200 mg PO TID 06/19/18 10/16/18 Unknown hydrochlorothiazide 25 mg PO QAM 06/19/18 10/16/18 Unknown insulin glargine 32 unit SUBCUT HS 06/19/18 10/16/18 Unknown lisinopril 20 mg PO QAM 06/19/18 10/16/18 Unknown lorazepam 0.5 mg PO BID PRN 06/19/18 10/16/18 Unknown metformin 500 mg PO BID 06/19/18 10/16/18 Unknown insulin aspart (U-100) 100 unit/mL 15 units SUBCUT QPM ml 08/03/18 10/16/18 Unknown (3 mL) subcutaneous pen acetaminophen [Tylenol Extra 500 mg PO Q6H PRN 10/16/18 10/16/18 Unknown Strength] nystatin 1 applic TOPICAL BID PRN 10/16/18 10/16/18 Unknown Past Medical History Medical History Anxiety (Chronic) Arthritis (Chronic) Diabetes type 2, uncontrolled (Chronic) Gout (Chronic) HTN (hypertension) (Chronic) Hyperlipidemia associated with type 2 diabetes mellitus (Chronic) Morbid obesity (Chronic) Peripheral neuropathy (Chronic) Spinal stenosis (Chronic) Difficult airway for intubation 10/11/17 - Glidescope #4, ETT #7.5, Straight Blade, Grade 1 View. Went straight to glidescope due to large neck circumference and MP-3. GERD (gastroesophageal reflux disease) Hiatal hernia Nausea and vomiting after administration of anesthetic agent Exercise / Class Metabolic Activity III < 4 Walking/Shop/Light housework (Limited due to hip pain. Can slowly climb FOS with difficulty. Denies CP or SOB. ) Past Surgical History Surgical History S/P carpal tunnel release (Chronic) B/L H/O right knee surgery (Resolved) S/P cholecystectomy (Resolved) 10/11/17 - Glidescope #4, ETT #7.5, Straight Blade, Grade 1 View. Went straight to glidescope due to large neck circumference and MP-3. Status post left hip replacement (Resolved) Fusion of spine History of total knee replacement RT - Spinal was unsuccessful. 02/12/16 - Glidescope #4, ETT #7.5, Oral, Grade 1 View Past Anesthesia History No Hx of Anesthesia Complications and No Family Hx of Anesthesia Complications History of PONV History of PONV and Hx of Motion Sickness (OCCASIONALLY) Social History Smoking Status: Never smoker Smoking cigarettes per day: 0 Do You Dip or Chew Tobacco: No Hx Alcohol Use: No Alcohol Intake Frequency Comment: 0 Hx Substance Use: No substance use type: does not use Review of Systems Patient denies chest pain, shortness of breath, dyspnea on exertion, cough, wheezing, palpitations. +Joint Pain (Left Knee, Right Hip, Hands, Back) +Acid Reflux (Diet Controlled) Physical Exam Vital Signs BP: 118/75 P: 81 R: 16 T: 97.9 SPO2: 96% on RA Constitutional + morbidly obese ENMT Thyromental Distance: > or= 3.5 Finger Breadths (4) Mallampati Class: II Neck normal visual inspection, trachea midline and + thick neck; neck extension not limited Respiratory normal respiratory effort Auscultation: lungs clear to auscultation bilaterally Cardiovascular Rate/Rhythm: regular rate and regular rhythm Heart Sounds: no murmur Vessels: no carotid bruit Neurologic moves all extremities Psychiatric Orientation: alert and oriented x 3 Testing Laboratory Results 10/17/18 09:04 10/17/18 09:04 10/17/18 10/17/18 10/17/18 09:04 09:04 09:04 PT 10.2 INR 1.0 APTT 28.2 Hemoglobin A1c 6.6 H Blood Type A Positive Antibody Screen NEGATIVE Electrocardiogram Date: 10/17/18 Findings: + NSR @ (76) and + no change from (10/02/17) Chest X-Ray Date: 10/17/18 Findings: + NAD FINDINGS: The bones soft tissues and hemidiaphragms are normal. The c ardiomediastinal silhouette is normal. The lungs are clear. The pulmonary vasculature is normal. IMPRESSION: Negative chest.
--- NOTE | 2018-10-17 08:36 | PAT Medication Instructions ---
Medication Instructions Date of Service October 17, 2018 Home Medications Centrum Silver Men 1 tab PO DAILY Novolog Flexpen U-100 Insulin 5 unit SUBCUT QDB Novolog Flexpen U-100 Insulin 8 unit SUBCUT QDL allopurinol 300 mg PO QAM aspirin 81 mg PO QAM atorvastatin 80 mg PO HS diclofenac sodium 2 g TOPICAL QID dulaglutide 1.5 mg SUBCUT WK gabapentin 200 mg PO TID hydrochlorothiazide 25 mg PO QAM insulin glargine 32 unit SUBCUT HS lisinopril 20 mg PO QAM lorazepam 0.5 mg PO BID NEEDED metformin 500 mg PO BID insulin aspart (U-100) 100 unit/mL 15 units SUBCUT QPM acetaminophen [Tylenol Extra Strength] 500 mg PO Q6H NEEDED nystatin 1 applic TOPICAL BID NEEDED Continue as directed dulaglutide 1.5 mg SUBCUT WK STOP taking 24 hours before surgery diclofenac sodium 2 g TOPICAL QID nystatin 1 applic TOPICAL BID NEEDED DO NOT take the morning of surgery Centrum Silver Men 1 tab PO DAILY Novolog Flexpen U-100 Insulin 5 unit SUBCUT QDB hydrochlorothiazide 25 mg PO QAM lisinopril 20 mg PO QAM metformin 500 mg PO BID Take morning of surgery With a small sip of water, OTHERWISE NOTHING TO EAT OR DRINK AFTER MIDNIGHT: allopurinol 300 mg PO QAM aspirin 81 mg PO QAM gabapentin 200 mg PO TID lorazepam 0.5 mg PO BID NEEDED (if needed; stop 4 hours before surgery) acetaminophen [Tylenol Extra Strength] 500 mg PO Q6H NEEDED (if needed) Take evening before surgery atorvastatin 80 mg PO HS gabapentin 200 mg PO TID insulin glargine 32 unit SUBCUT HS lorazepam 0.5 mg PO BID NEEDED (if needed) metformin 500 mg PO BID insulin aspart (U-100) 100 unit/mL 15 units SUBCUT QPM acetaminophen [Tylenol Extra Strength] 500 mg PO Q6H NEEDED (if needed) Other Notes If you have any questions please call us at [phone] or [phone] or [phone] or [phone]
--- NOTE | 2018-10-17 09:44 | XRay Report ---
XR chest Pre-admission PA/Lat CLINICAL HISTORY: pat preoperative evaluation COMPARISON STUDY: 01/11/2016 FINDINGS: The bones soft tissues and hemidiaphragms are normal. The cardiomediastinal silhouette is n ormal. The lungs are clear. The pulmonary vasculature is normal. IMPRESSION: Negative chest. The above report was generated using voice recognition software. It may contain grammatical, syntax or spelling errors. Electronically signed by: Trey Marsh M.D. 10/17/2018 9:42 AM
[2018-10-17 11:43] LABS: Basophils # (auto) 0.06 K/uL (0-0.2); Basophils % (auto) 0.7 %; Eosinophils # (auto) 0.24 K/uL (0-0.5); Eosinophils % (auto) 2.7 %; Hematocrit (blood only) 42.1 % (42-52); Hemoglobin 14.8 g/dL (14.0-18.0); Immature Granulocytes # (auto) 0.03 K/uL (0.00-0.02); Immature Granulocytes % (auto) 0.3 %; Lymphocytes # (auto) 2.36 K/uL (1.2-3.4); Lymphocytes % (auto) 26.4 %; Mean Corpuscular Hgb Conc 35.2 g/dL (32-36); Mean Corpuscular Volume 88.6 fL (80-100); Mean Platelet Volume 11.4 fL (7.4-10.4); Monocytes # (auto) 0.73 K/uL (0.11-0.59); Monocytes % (auto) 8.2 %; Neutrophils # (auto) 5.52 K/uL (1.4-6.5); Neutrophils % (auto) 61.7 %; Platelet Count 208 K/uL (130-400); RDW Coefficient of Variation 14.1 % (11.5-14.5); RDW Standard Deviation 45.8 fL (36.4-46.3); Red Blood Count 4.75 M/uL (4.7-6.1); White Blood Count 8.94 K/uL (4.8-10.8)
[2018-10-17 11:50] LABS: C Reactive Protein 0.6 mg/dl (0-0.29); Calcium 9.4 mg/dl (8.5-10.1); Creatinine Clr Calc Pharmacy 84.7 ml/min; Est GFR (African American) 81.5; Est GFR (Non-African American) 70.4; Potassium 3.3 mmol/L (3.5-5.1)
[2018-10-17 11:53] LABS: Partial Thromboplastin Time 28.2 Seconds (21.0-31.0); Prothrombin Time 10.2 Seconds (9.0-12.0)
[2018-10-17 12:48] LABS: Estimated Average Glucose 143 mg/dl; Hemoglobin A1C 6.6 % (4.5-5.6)
--- NOTE | 2018-10-31 15:40 | History and Physical Report ---
DATE OF ADMISSION: 11/07/2018 CHIEF COMPLAINT: Persistent right hip pain and discomfort. HISTORY OF PRESENT ILLNESS: A 67-year-old gentleman well known to me from previous right knee replacement, now about 3 years out. He has done well from this and had his left hip replaced by Dr. Bentley 8 years ago. He continues to become more and more limited by his right hip pain. He describes groin pain, thigh pain radiating down to his knee. He has started using a cane intermittently due to his pain. The more he walks, the more it hurts. He has nighttime pain. He has taken various medicines with minimal relief. He uses topical gel as well without much relief. He now would like to proceed with surgical treatment. PAST MEDICAL HISTORY: Significant for: 1. Diabetes x2 years with an A1c of 6.6. 2. Anxiety/depression. 3. Back pain. 4. Gastroesophageal reflux disease. 5. Hiatal hernia. 6. Obesity with BMI of 51.4. PAST SURGICAL HISTORY: Include: 1. Back surgery. 2. Right knee replacement 3 years ago. 3. Left hip replacement 8 years ago. 4. Carpal tunnel release. ALLERGIES: None. CURRENT MEDICINES: Include: 1. Diclofenac topical gel. 2. Centrum Silver. 3. Lorazepam. 4. Tylenol. 5. Nystatin. 6. Hydrochlorothiazide. 7. Allopurinol. 8. Lisinopril. 9. Triamcinolone cream. 10. Aspirin. 11. Insulin. 12. Bactrim twice a day. 13. Trulicity. 14. Atorvastatin. 15. elixir. 16. Metformin 500 mg twice a day. 17. Gabapentin 200 mg 3 times a day. SOCIAL HISTORY: He is a 67-year-old male. He lives in [place]. No significant smoking history. FAMILY HISTORY: Noncontributory. REVIEW OF SYSTEMS: Significant for some lower extremity ulcers in the past, which have now healed up. Denies any current chest pain or shortness of breath. No history of DVT or PE. No known bleeding problems. PHYSICAL EXAMINATION: GENERAL: Reveals a healthy, pleasant 67-year-old gentleman, he looks to be in reasonably good health. HEENT: Benign. NECK: Supple. No lymphadenopathy. LUNGS: Clear to auscultation. HEART: Has a regular rate and rhythm. ABDOMEN: Soft, nontender, nondistended. EXTREMITIES: Grossly neurovascularly intact except as follows. Examination of the right hip reveals the patient walks with use of a cane. He does limp on the right side. Very stiff hip with limited motion. He has got external rotation contracture about 10 degrees. Negative straight leg raise. He is neurovascularly intact. X-RAYS: X-rays of the right hip were reviewed. It shows advanced right hip DJD. He has got complete loss of his joint space. He does have a left hip replacement that looks to be in acceptable position. Looks like the implant may have subsided a little bit. He does have evidence of previous back fusion as well. ASSESSMENT: A 67-year-old gentleman with a history of chronic stasis changes distally, 8 years out from a left hip replacement, 3 years out from right knee replacement and previous back surgery with advanced right hip degenerative joint disease. He has failed conservative treatment and really like to have his right hip replaced. PLAN: We talked about treatment and the risks of this in this patient with his large size and history of some venous changes. Despite the increased risk of infection, he would like to proceed with treatment. The risks and benefits of right total hip replacement were explained to the patient including but not limited to DVT, PE, , infection, neurological injury, vascular injury, bleeding problem, pain, limited range of motion, stiffness, failure to relieve symptoms, incomplete relief of symptoms, need for further surgery in the future, fracture, leg length inequality, nerve palsy, dislocation, etc. The patient understands and desires to proceed. Informed consent was obtained. I did explain to him with his history of back fusion, he is at increased risk of dislocation. We will try and do all we can to stabilize his hip with likely a larger ball and more anteversion of the socket. We did talk to him about holding his lisinopril the morning of surgery.
[~2018-11-07 06:12] MED LIST changes: +ACETAMINOPHEN 500 MG TAB PO SCH; -ALLO300T2 PO; -ASPI81TA28 PO; +CEFAZOLIN 3000MG 72.5 ML IV SCH; -DULA0.5I SQ; +FAMOTIDINE 20 MG TAB PO SCH; -GABA-112 PO; +GABAPENTIN 300 MG PO SCH; -GLC/500 PO; -HYDR25TA4 PO; -IBUP-1050 PO; -INSDGIPEN SC; -LISI-725 PO; -LORA-741 PO; +LR 500ML BOLUS, THEN 15ML/HR IV SCH; +LR 60ML/HR IV SCH; +METOCLOPRAMIDE HCL 10 MG TABLET PO SCH; -MULT-506 PO; -NVLGI/PEN SQ; -NVLGIPEN SQ; -NYST100010 TOP; -PHEN1ELX5 PO; +TRANEXAMIC ACID 1,000 MG **IV Pre-op IV SCH; +TRANEXAMIC ACID 1,000 MG x 1 **For Topical Use TOP SCH; -TRMCR130WC TOP
--- NOTE | 2018-11-07 06:55 | History & Physical Bridge Note ---
Date of Service November 07, 2018 History & Physical Bridge Note I have examined the patient, reviewed the History & Physical and in the interval since the performance of the History & Physical I have noted the following changes of clinical significance: no changes noted
[2018-11-07] MEDS ORDERED: BUPIVACAINE 0.5 % 5 MG/1 ML PF 10ML VIAL ONE (07:21)
[2018-11-07] MEDS ORDERED: PROPOFOL IV EMULSION 10 MG/ML 20 ML VIAL IV ONE (07:49)
[2018-11-07] MEDS ORDERED: LIDOCAINE HCL 2% 2 ML VIAL/AMP(20MG/ML) INFIL ONE (07:49)
[2018-11-07] MEDS ORDERED: MIDAZOLAM HCL 1 MG/ML 2ML VIAL ONE ×2 (07:49→10:31)
[2018-11-07] MEDS ORDERED: MoRPHine SULFATE PF 1 MG/ML 10 ML AMP/VIAL ONE (07:49)
[2018-11-07] MEDS ORDERED: BUPIVACAINE/EPINEPHRINE 0.5% MPF 1:200,000 30 ML VIAL ONE (08:51)
[2018-11-07] MEDS ORDERED: BACITRACIN INJ 50,000 UNIT VIAL ONE (08:51)
[2018-11-07] MEDS ORDERED: DiphenhydrAMINE HCL 50 MG/ML VIAL IV PRN (09:03)
[2018-11-07] MEDS ORDERED: NALBUPHINE HCL INJ 10 MG/ML AMP IV PRN (09:03)
[2018-11-07] MEDS ORDERED: NALOXONE HCL 0.4 MG/1 ML VIAL/CARP IV PRN ×2 (09:03→12:46)
[2018-11-07] MEDS ORDERED: ePHEDrine sulfate 50 MG/ML AMP IV PRN (09:03)
[2018-11-07] MEDS ORDERED: MEPERIDINE HCL 25 MG/ML CARP IV PRN (09:03)
[2018-11-07] MEDS ORDERED: NALOXONE HCL 1 MG in SODIUM CHLORIDE 0.9% 1000ML 1,000 ML IV PRN (09:03)
[2018-11-07] MEDS ORDERED: NALOXONE HCL 0.08 MG in SYRINGE 1.8 ML IV PRN (09:03)
[2018-11-07] MEDS ORDERED: ONDANSETRON INJ 2 MG/ML 2 ML VIAL IV PRN ×2 (09:03→12:46)
[2018-11-07] MEDS ORDERED: MoRPHine SULFATE PF 1 MG/ML 10 ML AMP/VIAL INT SPINAL ONE (09:03)
[2018-11-07] MEDS ORDERED: PROMETHAZINE HCL 12.5 MG in SODIUM CHLORIDE 0.9% 50 ML IV PRN (09:03)
[2018-11-07] MEDS ORDERED: KETOROLAC 30 MG/ML VIAL IV PRN (09:03)
[2018-11-07] MEDS ORDERED: DC INTRASPINAL MORPHINE SCH (09:15)
[2018-11-07] MEDS ORDERED: NO NARCOTICS OR SEDATIVES SCH (09:15)
[2018-11-07] MEDS ORDERED: PHENYLEPHRINE 100MCG/ML 5ML SYR ONE (09:27)
[2018-11-07] MEDS ORDERED: PHENYLEPHRINE HCL 10 MG/ML VIAL ONE (09:51)
[2018-11-07] MEDS ORDERED: KETAMINE HCL INJ 50 MG/ML 10 ML VIAL ONE (09:54)
[2018-11-07] MEDS ORDERED: LACTATED RINGER'S 500 ML IV PRN (10:30)
[2018-11-07] MEDS ORDERED: SODIUM CHLORIDE 0.9% 1000ML 1,000 ML IV SCH (10:40)
--- NOTE | 2018-11-07 11:07 | Post Operative Brief Note ---
Immediate Post Op Note v1 Date of Surgery November 07, 2018 Pre & Post Diagnosis Operation Date: 11/07/18 09:05 Pre-Op Diagnosis: RIGHT HIP DEGENERATIVE JOINT DISEASE Post-Op Diagnosis: RIGHT HIP DEGENERATIVE JOINT DISEASE Procedure Operation Date: 11/07/18 09:05 Actual Procedures p Right Total Hip Arthroplasty(Right) - Delon Connors MD Surgeon Delon Connors MD Aircraft Avionics Technician Andrea, PAC Estimated Blood Loss 300 Findings Consistent with Post-Op Diagnosis Fluids 1400 cc Specimens Right Femoral Head Drains Lynch Catheter Anesthesia Type Spinal MAC Complications none Disposition Accompanied Patient To Recovery: Yes Disposition: Recovery Room
--- NOTE | 2018-11-07 11:54 | XRay Report ---
AP PELVIS, CROSSTABLE LATERAL RIGHT HIP History: Right total hip arthroplasty. Degenerative arthritis. Postop. FINDINGS: The patient is status post a right total hip arthroplasty. The hardware is intact. No fract ure or dislocation. Skin ander are in place. Prior left total hip arthroplasty is also noted. IMPRESSION: Right total hip arthroplasty. No evidence for hardware complication Electronically signed by: James Willoughby M.D. 11/07/2018 11:53 AM
--- NOTE | 2018-11-07 12:16 | Anesthesiology Progress Note ---
Date of Service November 07, 2018 Anesthesia Post Procedure Vital Signs Vital Signs: Temp Pulse Resp BP Pulse Ox 11/07/18 12:00 36.6 C 84 23 121/87 98 11/07/18 11:50 36.1 C L 83 18 113/66 97 11/07/18 11:40 36.1 C L 83 22 107/60 97 11/07/18 11:30 36.1 C L 84 14 106/61 90 11/07/18 11:20 36.1 C L 90 20 117/66 96 11/07/18 11:10 36.1 C L 91 H 18 113/62 96 11/07/18 07:11 36.8 C 86 20 157/92 H 96 Pain Intensity Right Hip: Pain Intensity: 4 Transfer of Care Handoff Completed per policy Notes Mental Status: alert / awake / arousable Patient Amnestic to Procedure: Yes Nausea / Vomiting: adequately controlled Pain: adequately controlled Airway Patency, RR, SpO2: stable & adequate BP & HR: stable & adequate Hydration State: stable & adequate Anesthetic Complications: no major complications apparent
[2018-11-07] MEDS ORDERED: INSULIN ASPART 100 UNITS/ML 3 ML PEN SQ SCH (12:46)
[2018-11-07] MEDS ORDERED: MAGNESIUM HYDROXIDE SUSP 30 ML UDC PO PRN (12:46)
[2018-11-07] MEDS ORDERED: CARBOHYDRATES FOR HYPOGLYCEMIA PO PRN (12:46)
[2018-11-07] MEDS ORDERED: METOCLOPRAMIDE HCL INJ 5 MG/ML 2 ML VIAL IV PRN (12:46)
[2018-11-07] MEDS ORDERED: TAMSULOSIN HCL 0.4 MG CAP PO PRN (12:46)
[2018-11-07] MEDS ORDERED: GLUCOSE 10 TABS/TUBE PO PRN (12:46)
[2018-11-07] MEDS ORDERED: ALUMINUM/MAGNESIUM SUSP 30 ML UDC PO PRN (12:46)
[2018-11-07] MEDS ORDERED: GLUCOSE 40% GEL 15 GM TUBE PO PRN (12:46)
[2018-11-07] MEDS ORDERED: HYDROmorphone INJ 0.5 MG/0.5 ML SYR IV PRN (12:46)
[2018-11-07] MEDS ORDERED: LORazepam 1 MG TAB PO PRN (12:46)
[2018-11-07] MEDS ORDERED: NYSTATIN POWDER 15GM BTL EXT PRN (12:46)
[2018-11-07] MEDS ORDERED: GLUCAGON FOR INJ 1 MG VIAL SQ PRN (12:46)
[2018-11-07] MEDS ORDERED: PHARMACY GLYCEMIC MGMT CONSULT STA (12:46)
[2018-11-07] MEDS ORDERED: DULAGLUTIDE 1.5 MG SQ SCH (12:46)
[2018-11-07] MEDS ORDERED: OXYCODONE HCL IR 5 MG TAB (IMMEDIATE RELEASE) PO PRN (12:46)
[2018-11-07] MEDS ORDERED: DEXTROSE 50% 50 ML SYRINGE IV PRN (12:46)
[2018-11-07] MEDS ORDERED: BISACODYL 10 MG SUPP PR PRN (12:46)
[2018-11-07] MEDS ORDERED: PHARMACY GLYCEMIC MGMT CONSULT PRN (13:31)
[2018-11-07] MEDS: DICLOFENAC SOD 1% GEL 100 GM TUBE EXT SCH ×3 (13:56→20:16)
[2018-11-07] MEDS: GABAPENTIN 100 MG CAP PO SCH ×2 (13:56→20:15)
[2018-11-07] MEDS: SODIUM CHLORIDE 0.9% 1000ML 1,000 ML IV SCH ×2 (13:56→20:13)
[2018-11-07] MEDS: ACETAMINOPHEN 500 MG TAB PO SCH ×2 (13:56→21:40)
[2018-11-07] MEDS: KETOROLAC TROMETHAMINE 15 MG/ML VIAL IV SCH ×2 (13:57→20:14)
--- NOTE | 2018-11-07 15:09 | Pharmacy Report ---
Pharmacy Glycemic Short Note 2 - Date of Service November 07, 2018 - Glycemic Short BSG Results (Last 24 hours): 11/07/18 11/07/18 11/07/18 06:40 11:14 13:04 POC Glucose 137 H 152 H 144 H OUTPATIENT ANTIDIABETIC REGIMEN: * Trulicity 1.5mg SQ weekly (on Monday) * Lantus 32 units SQ qHS * Novolog TIDM * 5 units with breakfast * 8 units with lunch * 15 units with dinner * Metformin 500mg PO BID * HbA1c: 6.6% (10/17/18) ASSESSMENT: * Mr Irene is a 67yo diabetic male POD 0 s/p R total hip with Dr Connors this morning. * BSGs today: 137, 144 * It does not appear as though patient received any pre-op steroids. PLAN FOR INPATIENT GLYCEMIC CONTROL: * Hold outpatient oral diabetes medications * Will consider resuming Metformin tomorrow * Basal insulin * Continue home dose of Lantus 32 units SQ qHS * Bolus insulin * NovoLog per scale ACHS or Q6hrs while NPO * Goal Range: Low 110 mg/dL - High 140 mg/dL * Correction Factor: 20 mg/dL/unit * Nutritional / Prandial insulin: 1 unit for every 7 gm CHO consumed PLAN FOR DISCHARGE: * Patient's A1c (6.6%) indicates excellent glycemic control. * Resume patient's home regimen on discharge, unless patient reports having episodes of hypoglycemia as an outpatient.
[2018-11-07] MEDS: INSULIN ASPART 100 UNITS/ML 3 ML PEN SC SCH ×3 (15:43→21:03)
[2018-11-07] MEDS ORDERED: TRANEXAMIC ACID 1,000 MG in 0.9 % SODIUM CHLORIDE 100 ML IV SCH (17:09)
[2018-11-07] MEDS: CEFAZOLIN 2000MG 2,000 MG/15 ML SYR IV SCH (17:53)
[2018-11-07] MEDS: ASCORBIC ACID 500 MG TAB PO SCH (17:59)
[2018-11-07] MEDS: FERROUS GLUCONATE 324 MG TAB PO SCH (17:59)
--- NOTE | 2018-11-07 19:32 | Progress Note ---
DATE: 11/07/2018 SUBJECTIVE: A 67-year-old gentleman postop from a right hip replacement. He is doing well. Not having any pain yet. No chest pain or shortness of breath. Not feeling dizzy or lightheaded. OBJECTIVE: VITAL SIGNS: Temperature 36.5. Vital signs stable. GENERAL: Reveals a healthy, pleasant, middle-aged male. He is sitting up in bed, looks pretty comfortable. LUNGS: Clear to auscultation. HEART: Regular rate and rhythm. ABDOMEN: Soft, nontender, nondistended. EXTREMITIES: Grossly neurovascularly intact except as follows: Examination of the right lower extremity reveals the leg lengths to be equal. His dressing is clean, dry and intact. Hip is located. He is neurologically intact. He can dorsiflex and plantarflex his foot appropriately. X-RAYS: X-rays of the right hip from Recovery Room reviewed. He has right uncemented total hip arthroplasty. Components looked to be in acceptable position. No signs of problems. ASSESSMENT: A 67-year-old gentleman postop from a right hip replacement, doing pretty well. His pain is controlled. Hip is located. He is neurologically intact. PLAN: 1. DVT prophylaxis including thigh-high TEDs, SCDs, and aspirin twice a day. 2. PT/OT. Weight bear as tolerated. Right total hip protocol. 3. Pain control, doing okay with current pain regimen. He will certainly have more pain as his spinal wears off. 4. IV antibiotics x24 hours. 5. Disposition. He is planning to be discharged to home with some home health once adequately recovered.
[2018-11-07] MEDS: ASPIRIN 81 MG ECTAB PO SCH (20:13)
[2018-11-07] MEDS: DOCUSATE SODIUM 100 MG CAP PO SCH (20:14)
[2018-11-07] MEDS: ATORVASTATIN 40 MG TAB PO SCH (20:15)
[2018-11-07] MEDS: SENNA 8.6 MG TAB PO SCH (20:16)
[2018-11-07] MEDS: TAPENTADOL HCL ER 50 MG TABCR PO SCH (20:20)
[2018-11-07] MEDS: INSULIN GLARGINE SOLOSTAR 100 UNITS/ML 3 ML PEN SC SCH (21:04)
[2018-11-08] MEDS: CEFAZOLIN 2000MG 2,000 MG/15 ML SYR IV SCH (01:27)
[2018-11-08] MEDS: KETOROLAC TROMETHAMINE 15 MG/ML VIAL IV SCH ×4 (01:29→20:06)
[2018-11-08] MEDS: SODIUM CHLORIDE 0.9% 1000ML 1,000 ML IV SCH (03:33)
--- NOTE | 2018-11-08 05:11 | Operative Report ---
DATE OF OPERATION: 11/07/2018 SURGEON: Delon Connors MD. MANAGER FILE: MARY JO Kelsey. PREOPERATIVE DIAGNOSIS: Right hip degenerative joint disease. POSTOPERATIVE DIAGNOSIS: Right hip degenerative joint disease. PROCEDURE PERFORMED: Right uncemented ceramic on highly cross-linked polyethylene total hip arthroplasty. COMPLICATIONS: None. ESTIMATED BLOOD LOSS: 300 mL. FLUID REPLACEMENT: 1400 mL crystalloid fluid replacement. ANESTHESIA: Spinal. DRAINS: None. SPECIMENS: Right femoral head sent for pathology. OPERATIVE INDICATIONS: The patient is a 67-year-old gentleman who has had a long history of multiple orthopedic problems. He had undergone a previous left hip replacement and right knee replacement in the past. Over the past year, he has developed increased pain and discomfort in his right hip to the point where he has had to use a cane to get along. He failed all conservative treatments. X-rays show advanced right hip DJD. He had a very extremely stiff hip. He elected to proceed with total hip arthroplasty. Of note, this patient is morbidly obese with a BMI of 51. This made the surgery significantly more difficult. The patient has also had previous spine fusion and therefore we tried to maximize his hip stability due to the slight increased risk of a dislocation postoperatively. OPERATIVE IMPLANTS: Operative implants used: 1. Biomet G7 size 54 mm acetabular shell. 2. A 6.5 cancellous acetabular screws, 1 at 35 mm length and 1 at 25 mm in length. 3. An apex hole eliminator. 4. Highly cross-linked polyethylene liner with a 54 mm outer diameter, 36 mm inner diameter. 5. DePuy Corail size 11 KLA femoral component. 6. A +1.5/36 mm ceramic articular ball. OPERATIVE PROCEDURE: The patient taken to the operating room, identified and placed on the operative table in supine position. All contact areas were appropriately padded. IV antibiotics were provided by anesthesia team. A spinal anesthetic had been implemented in the holding area. Lynch catheter was placed in sterile fashion. The patient was then placed in the left lateral decubitus position. An axillary roll was placed. Stlberg hip positioner was used for positioning. We did take some extra time positioning due to his large size. The right hip and leg were then prepped and draped in usual sterile fashion. Posterolateral approach to the right hip was then performed through a curvilinear incision centered over the greater trochanter. Sharp dissection was carried through subcutaneous tissue down below the IT band and gluteal fascia. There was about a 5 inch thick soft tissue envelope. The IT band and gluteal fascia were then incised longitudinally in line with skin incision. The underlying greater trochanteric bursa was excised. The piriformis and external rotators were released from the posterior aspect of the hip with a single layer as his hip was extremely tight with an external rotation contracture. Great care was taken throughout the procedure to protect the sciatic nerve at all times. Hip was internally rotated and dislocated. Femoral neck osteotomy cut was made with final cut about 10 mm above the lesser trochanter. Femoral head was removed and sent for pathology. Attention was then drawn to the acetabulum. The acetabulum labrum was excised. There was a fairly hypertrophic labrum. The pulvinar fat was excised. Sequential reaming of the acetabulum was then performed beginning with a size 45 and progressing up to 53. A 54 mm Biomet G7 acetabular shell was then placed in about 20 degrees of anteversion and 40 degrees of lateral opening. I really worked hard in order to get this in an acceptable position due to its large size. It was fixed with two 6.5 cancellous acetabular screws. A trial liner was placed. Attention was then drawn to the femur. The proximal femur was entered with a cookie cutter followed by canal finder. I then broached beginning with a size 8 and progressing up to 11. We got excellent fit at 11. A calcar reamer was used to smoothen off the calcar. We then trialed the hip. The +5 articular ball was stable, but just felt too tight in extension. Even with the +1.5 ball was a little bit tight, but I really wanted to maximize his stability due to his previous spine fusion. After much consideration, we elected to place these implants. All trial implants were removed. An apex hole eliminator was placed. Highly cross-linked polyethylene liner was placed. A DePuy Corail size 11 KLA femoral stem was placed. A +1.5/36 mm ceramic articular ball was placed. Hip was located and once the tendon again found to be stable. It was still a bit tight and I could not even completely extend his hip. It was stable anteriorly. It was stable with flexion to 90 degrees, internal rotation to 50 degrees. Attention was then drawn toward closing. The wound was irrigated with copious amounts of pulsatile lavage solution. I did inject locally with 60 mL of 0.5% Marcaine with epinephrine. The posterior capsule and external rotators were repaired as a single layer through drill holes in the posterior trochanter. The IT band and gluteal fascia were then closed with #1 PDS suture in running fashion. Subcutaneous tissue was then closed with 2 layers with the deep layer with #2 Vicryl suture in a buried interrupted fashion. The subcutaneous tissue with 2-0 Dexon suture in a buried interrupted fashion. Skin was then closed with skin ander. Leg was then cleaned, dried and a sterile dressing of Xeroform, 4 x 4's, sterile ABD pad and foam tape was applied. The patient then transferred to the Recovery Room in stable condition. The patient tolerated the procedure well with no complications. All needle and sponge counts were correct at the end of the operation. I attest to the content of the Intraoperative Record and any orders documented therein. Any exception s are noted below.
[2018-11-08 06:03] LABS: Basophils # (auto) 0.06 K/uL (0-0.2); Basophils % (auto) 0.6 %; Eosinophils % (auto) 2.1 %; Hematocrit (blood only) 34.5 % (42-52); Immature Granulocytes # (auto) 0.03 K/uL (0.00-0.02); Immature Granulocytes % (auto) 0.3 %; Lymphocytes # (auto) 2.33 K/uL (1.2-3.4); Lymphocytes % (auto) 24.5 %; Mean Corpuscular Hgb Conc 34.8 g/dL (32-36); Mean Corpuscular Volume 88.5 fL (80-100); Mean Platelet Volume 10.9 fL (7.4-10.4); Monocytes # (auto) 0.88 K/uL (0.11-0.59); Monocytes % (auto) 9.3 %; Neutrophils # (auto) 6.01 K/uL (1.4-6.5); Neutrophils % (auto) 63.2 %; Platelet Count 165 K/uL (130-400); RDW Coefficient of Variation 14.3 % (11.5-14.5); White Blood Count 9.51 K/uL (4.8-10.8)
[2018-11-08 06:09] LABS: BUN Creatinine Ratio 23.8 (10-20); Calcium 7.7 mg/dl (8.5-10.1); Creatinine Clr Calc Pharmacy 87.9 ml/min; Est GFR (African American) 85.3; Est GFR (Non-African American) 73.6; Potassium 3.9 mmol/L (3.5-5.1)
[2018-11-08] MEDS: ACETAMINOPHEN 500 MG TAB PO SCH ×3 (06:11→22:19)
--- NOTE | 2018-11-08 07:15 | Orthopedic Progress Note ---
Date of Service November 08, 2018 Assessment & Plan (1) Status post total hip replacement, right: He was seen and examined by Dr. Connors. PT/OT: wbat, total hip precautions. Dvt prophylaxis Pain is controlled. discharge planning. Subjective POD 1 from [facility]. No pain. c/o itching Physical Exam Physical Exam: Alert, NAD. Dressing clean and dry. NVI. Good alignment of hip/hip located. able to DF/PF Results & Data Vital Signs (Past 12 Hours) Vital Signs Temp Pulse Resp BP Pulse Ox 11/08/18 07:00 36.7 C 81 16 148/81 H 100 11/08/18 03:37 16 96 11/08/18 03:20 36.7 C 84 16 147/75 H 97 11/08/18 01:34 16 96 11/08/18 00:35 18 94 11/07/18 23:30 16 93 11/07/18 23:00 36.9 C 78 16 125/78 96 11/07/18 22:35 18 93 11/07/18 21:40 16 95 11/07/18 20:35 20 96 11/07/18 19:50 36.9 C 81 17 146/69 H 96 11/07/18 19:35 18 98
--- NOTE | 2018-11-08 08:04 | Anesthesiology Progress Note ---
Date of Service November 08, 2018 Anesthesia Post Procedure Vital Signs Vital Signs: Temp Pulse Pulse Resp BP Pulse Ox 11/08/18 07:00 36.7 C 81 16 148/81 H 100 11/08/18 03:37 16 96 11/08/18 03:20 36.7 C 84 16 147/75 H 97 11/08/18 01:34 16 96 11/08/18 00:35 18 94 11/07/18 23:30 16 93 11/07/18 23:00 36.9 C 78 16 125/78 96 11/07/18 22:35 18 93 11/07/18 21:40 16 95 11/07/18 20:35 20 96 11/07/18 19:50 36.9 C 81 17 146/69 H 96 11/07/18 19:35 18 98 11/07/18 18:35 16 96 11/07/18 17:35 18 96 11/07/18 16:35 18 95 11/07/18 15:38 36.5 C 82 18 119/57 L 96 11/07/18 15:35 16 95 11/07/18 14:36 81 16 105/63 97 11/07/18 14:35 16 97 11/07/18 13:33 83 16 128/73 96 11/07/18 13:25 18 96 11/07/18 13:03 85 16 125/70 96 11/07/18 12:35 36.7 C 81 20 122/70 98 11/07/18 12:20 36.6 C 82 18 126/66 95 11/07/18 12:10 36.6 C 85 18 127/54 L 99 11/07/18 12:00 36.6 C 84 23 121/87 98 11/07/18 11:50 36.1 C L 83 18 113/66 97 11/07/18 11:40 36.1 C L 83 22 107/60 97 11/07/18 11:30 36.1 C L 84 14 106/61 90 11/07/18 11:20 36.1 C L 90 20 117/66 96 11/07/18 11:10 36.1 C L 91 H 18 113/62 96 Pain Intensity Right Hip: Pain Intensity: 4 Notes Mental Status: alert / awake / arousable and participated in evaluation Patient Amnestic to Procedure: Yes Nausea / Vomiting: adequately controlled Pain: adequately controlled Airway Patency, RR, SpO2: stable & adequate BP & HR: stable & adequate Hydration State: stable & adequate Neuraxial Anesthesia: was administered and sensory block resolved Anesthetic Complications: no major complications apparent and Pt Satisfied with anesthetic care
[2018-11-08] MEDS: INSULIN ASPART 100 UNITS/ML 3 ML PEN SC SCH ×4 (08:36→22:23)
[2018-11-08] MEDS: MULTIVITAMIN TAB PO SCH (08:39)
[2018-11-08] MEDS: ASPIRIN 81 MG ECTAB PO SCH ×2 (08:39→22:18)
[2018-11-08] MEDS: hydroCHLOROthiazide 25 MG TAB PO SCH (08:39)
[2018-11-08] MEDS: GABAPENTIN 100 MG CAP PO SCH ×3 (08:39→22:18)
[2018-11-08] MEDS: ALLOPURINOL 300 MG TAB PO SCH (08:40)
[2018-11-08] MEDS: FERROUS GLUCONATE 324 MG TAB PO SCH ×2 (08:40→18:09)
[2018-11-08] MEDS: LISINOPRIL 20 MG TAB PO SCH (08:40)
[2018-11-08] MEDS: DOCUSATE SODIUM 100 MG CAP PO SCH ×2 (08:41→22:18)
[2018-11-08] MEDS: DICLOFENAC SOD 1% GEL 100 GM TUBE EXT SCH ×4 (08:41→22:17)
[2018-11-08] MEDS: TAPENTADOL HCL ER 50 MG TABCR PO SCH ×2 (08:50→22:18)
[2018-11-08] MEDS ORDERED: MULTIVIT MIN FA LYCOPEN LUTEIN PO SCH (09:00)
[2018-11-08] MEDS: ASCORBIC ACID 500 MG TAB PO SCH ×2 (09:29→18:58)
[2018-11-08] MEDS: SENNA 8.6 MG TAB PO SCH (22:18)
[2018-11-08] MEDS: ATORVASTATIN 40 MG TAB PO SCH (22:18)
[2018-11-08] MEDS: INSULIN GLARGINE SOLOSTAR 100 UNITS/ML 3 ML PEN SC SCH (22:22)
[2018-11-09] MEDS: KETOROLAC TROMETHAMINE 15 MG/ML VIAL IV SCH ×2 (02:22→09:03)
[2018-11-09] MEDS: ACETAMINOPHEN 500 MG TAB PO SCH (05:59)
--- NOTE | 2018-11-09 08:23 | Progress Note ---
DATE: 11/09/2018 SUBJECTIVE: A 67-year-old gentleman postop day 2 from right hip replacement. He is doing well. Really not much pain. Therapy has gone well. No chest pain or shortness of breath. Not feeling dizzy or lightheaded. OBJECTIVE: VITAL SIGNS: Temperature 36.5. Vital signs stable. GENERAL: Physical examination shows a pleasant, fairly large and middle-aged male. He is sitting up in his bedside chair and looks comfortable. EXTREMITIES: Examination of the right hip reveals incision to be clean, dry and intact. Thigh is soft and supple. Leg lengths were equal. Hip is located. ASSESSMENT: A 67-year-old gentleman postop day 2 from right hip replacement, doing pretty well. Pain is controlled. Hip is located. He is neurologically intact. PLAN: 1. DVT prophylaxis including thigh-high TEDs, SCDs, and aspirin twice a day. 2. PT/OT. Weight bear as tolerated. Right total hip protocol. 3. Pain control, doing well with current pain regimen. 4. Disposition: Plan to discharge to home with some home health later today.
[2018-11-09] MEDS ORDERED: METFORMIN HCL 500 MG TAB PO SCH (08:50)
[2018-11-09] MEDS: INSULIN ASPART 100 UNITS/ML 3 ML PEN SC SCH (09:01)
[2018-11-09] MEDS: FERROUS GLUCONATE 324 MG TAB PO SCH (09:03)
[2018-11-09] MEDS: DOCUSATE SODIUM 100 MG CAP PO SCH (09:03)
[2018-11-09] MEDS: LISINOPRIL 20 MG TAB PO SCH (09:04)
[2018-11-09] MEDS: hydroCHLOROthiazide 25 MG TAB PO SCH (09:04)
[2018-11-09] MEDS: ASCORBIC ACID 500 MG TAB PO SCH (09:04)
[2018-11-09] MEDS: ASPIRIN 81 MG ECTAB PO SCH (09:05)
[2018-11-09] MEDS: GABAPENTIN 100 MG CAP PO SCH (09:05)
[2018-11-09] MEDS: MULTIVITAMIN TAB PO SCH (09:05)
[2018-11-09] MEDS: ALLOPURINOL 300 MG TAB PO SCH (09:06)
[2018-11-09] MEDS: TAPENTADOL HCL ER 50 MG TABCR PO SCH (09:09)
[2018-11-09] MEDS: DICLOFENAC SOD 1% GEL 100 GM TUBE EXT SCH (09:09)
--- NOTE | 2018-11-13 15:52 | Discharge Summary ---
ADMITTING PHYSICIAN AND SURGEON: Delon Connors MD ADMITTING DIAGNOSIS: Right hip degenerative joint disease. SURGERY PERFORMED: Right total hip arthroplasty. SECONDARY DIAGNOSES: Diabetes, anxiety, depression, back pain, gastroesophageal reflux disease, hiatal hernia, obesity. CONSULTS: None obtained. HISTORY AND PHYSICAL EXAMINATION: Well documented in the patient's chart. HOSPITAL COURSE: The patient was admitted on 11/07/2018, underwent total hip arthroplasty, tolerated the procedure well. There were no complications. He was transferred to the PACU postoperatively and later to the orthopedic floor for further care. He was given Ancef for antibiotic prophylaxis, NARESH stockings, SCDs and aspirin for DVT prophylaxis. Hemoglobin, hematocrit and his vital signs were monitored during his hospital stay and remained stable. He did not require any blood transfusion. There were no complications. By postoperative day 2, he was tolerating a diabetic diet. Pain was controlled with oral pain medicine. He was participating in physical therapy. Postop day 2, he was discharged home, set up with home health services, was given printed discharge instructions including new prescriptions for extra-strength Tylenol, aspirin, and oxycodone. Continue his home medicines with the exception of his home dose of Tylenol and aspirin which were changed. Continue physical therapy, weightbearing as tolerated, NARESH stockings. Follow up approximately 2 weeks postop or sooner if there are any problems or concerns. He should also follow total hip precautions.
== END 2018-11-09 11:10 | disposition home health service (06) | DRG 470 ==
LOC: ASU 06:12 → 3E 12:40